=== PATIENT | male | born 1985 | race Caucasian/White ===

== ENCOUNTER 2021-03-10 16:37 | Inpatient (IN) | payer OTHER ==
[~2021-03-10] VITALS: Ht 172.7 cm; Wt 79.4 kg
[~2021-03-10 16:37] MED LIST: ACETAMINOPHEN-1 EAC1 PO; AUGMENTIN 875875 MG PO; BUSPIRONE HCL10 MG PO; CLONIDINE0.1 PO; GEODON40 MG PO; HYDROCODONE-AP1 EAC6 PO; IBUPROFEN 800800 M1 PO; IBUPROFEN 800800 MG PO; KEFLEX500 MG PO; MULTIPLE VITAM1 EAC1 PO; NOHOMEMEDICATIONS; NORCO 5-325 TA1 EAC1 PO; NORCO 5-325 TA1 EACH PO; PERCOCET 5-3251 EACH PO; PROCTOCREAM-HC30 G1 RC; ZOLOFT50 MG PO
[2021-03-10 17:04] VITALS: BP 150/86
[2021-03-10 17:07] LABS: URINE BLOOD 3+ (Negative); URINE CLARITY CLOUDY; URINE COLOR YELLOW; URINE GLUCOSE-RANDOM NEGATIVE (Negative); URINE KETONES NEGATIVE (Negative); URINE NITRITE-REFLEX NEGATIVE (Negative); URINE PROTEIN 3+ (Negative); URINE SPECIFIC GRAVITY >= 1.030 (1.005-1.030)
[2021-03-10 17:13] LABS: ICTOTEST (BILI CONFIRMATORY) Negative (Negative); URINE BILIRUBIN 1+ (Negative); URINE LEUKOCYTES-REFLEX 2+ (Negative)
[2021-03-10 17:22] LABS: BACTERIA-REFLEX >30 Many /HPF (None Seen); URINE WBC-REFLEX >25 Many /HPF (0-5)
[2021-03-10 17:23] LABS: MUCUS 0-3 Light strn/LPF (None Seen); URINE RBC >20 Many /HPF (0-2)
[2021-03-10 17:24] LABS: CASTS None Seen /LPF (None Seen); CRYSTALS None Seen /LPF (None Seen); SQUAMOUS 0-3 Few /LPF (0-3)
[2021-03-10 17:56] LABS: ABSOLUTE BASOPHILS 0.1 thou/uL (0.0-0.2); ABSOLUTE EOSINOPHILS 0.3 thou/uL (0.0-0.7); ABSOLUTE LYMPHOCYTES 2.8 thou/uL (0.8-5.3); ABSOLUTE MONOCYTES 1.2 thou/uL (0.0-1.2); ABSOLUTE NEUTROPHILS 8.7 thou/uL (1.6-8.1); BASOPHILS 0.6 %; EOSINOPHILS 2.3 %; HEMOGLOBIN 14.8 gm/dL (14.0-18.0); LYMPHOCYTES 21.5 %; MCH 30.7 pg (26.0-34.0); MCHC 34.5 g/dL (28.0-37.0); MONOCYTES 9.2 %; MPV 7.4 fl. (7.2-11.1); NUCLEATED RBCS 0 /100WBC; PLATELET COUNT* 366 thou/uL (150-400); POLYS 66.4 %; RBC 4.84 mil/uL (4.50-6.00); RDW-CV 13.3 % (10.5-14.5); WBC 13.1 thou/uL (4.0-11.0)
[2021-03-10 18:10] LABS: CALCIUM 8.7 mg/dL (8.5-10.1); POTASSIUM 3.9 mmol/L (3.5-5.1)
[2021-03-10 18:14] LABS: ALBUMIN 3.6 g/dL (3.4-5.0); TOTAL BILIRUBIN 0.4 mg/dL (<0.1-1.0); TOTAL PROTEIN 7.1 g/dL (6.4-8.2)
[2021-03-10 21:13] VITALS: BP 137/94
[2021-03-10 21:35] VITALS: BP 156/92
--- NOTE | 2021-03-11 02:45 | NUR ---
ALERT AND ORIENTED X4 MALE PATIENT TO ROOM 111 BY CART FROM ER IN STABLE CONDITION. SOMEWHAT ANXIOUS ON ARRIVAL DEALING WITH NEWLY INSERTED 3-Way COLON CATHETER AND NEW DIAGNOSIS. VITAL SIGNS STABLE WITH TACHYCARDIA. CONTINUES TO HAVE SOME PAIN OF PENIS AND PERINEUM. ADMISSION ROUTINES IN PROGRESS. MESSAGE OUT TO PHYSICIAN REGARDING REQUEST FOR NICTOTINE PATCH, PAIN AND ANXIETY MANAGEMENT. CONTINUE TO MONITOR.
--- NOTE | 2021-03-11 04:49 | NUR ---
PATIENT HAS REMAINED ALERT AND ORIENTED X 4 THROUGHOUT THE SHIFT AND ONCE NEW ORDERS RECEIVED AND PROVIDED FOR PAIN AND ANXIETY, PATIENT HAS RESTED QUIETLY. COLON PATENT TO DEPENDENT DRAINAGE. URINE DOES CONTAIN SEDIMENT, A FEW OCCASSIONAL SMALL BLOOD CLOTS AND URINE APPEARS BLOOD TINGED OVERALL. NPO AT MIDNIGHT FOR UROLOGY CONSULT THIS AM. DUE TO DISTRESS AT ARRIVAL WITH TEARS AND ANXIETY, IT WAS ARRANGED FOR PATIENT'S SIGNIFICANT OTHER TO STAY OVERNIGHT. CONTINUE TO MONITOR.
[2021-03-11 07:45] VITALS: BP 136/68
[2021-03-11 16:24] VITALS: BP 135/77
--- NOTE | 2021-03-11 18:04 | NUR ---
PATIENT RESTING IN BED. PATIENT IS UP AD JUAN MANUEL IN ROOM AND HALLS. PATIENT HAS COLON IN PLACE, CONTINUES TO BE BLOODY. PATIENT HAS COMPLAINTS OF PAIN AND ANXIETY, TREATED ADEQUATELY WITH MEDICATION. PATIENT HAS IV FLUIDS INFUSING ORDERED. PATIENT HAS GOOD APPETITE. PATIENT DENIES ANY NEEDS AT THIS TIME. CALL LIGHT WITHIN REACH.
[2021-03-11 19:30] VITALS: BP 147/94
--- NOTE | 2021-03-12 04:58 | NUR ---
PATIENT HAS REMAINED ALERT AND ORIENTED X 4 THROUGHOUT THE SHIFT. RESTING WELL AFTER PAIN AND ANXIETY MEDICATION PROVIDED [id number]. COLON CATHETER REMAINS PATENT TO DEPENDENT DRAINAGE WITH A FEW SMALL BLOOD CLOTS NOTED AND PINK TINGED URINE AT TIMES. HS PATIENT WAS STRAINING TO HAVE A BM. THE PRESENCE OF THE CATHETER ALSO MAKES HIM FEEL HE HAS TO URINATE. HE STATES SOME PUS TYPE FLUID CAME OUT AROUND THE CATHETER DURING THIS ACTIVITY. STAFF DID NOT OBSERVE. DID SEE SMALL AMOUNT PINK DRAINAGE LATER AFTER SHOWER. PATIENT IS VERY FIXATED ON THE CATHETER WHEN HE IS AWAKE AND VERY FREQUENTLY TOUCHING OR MANIPULATING IT. EDUCATION PROVIDED FOR COLON HYGIENE 2-3 X/DAY NEEDED BUT DISCOURAGED HIS CONSTANT ATTENDENCE. HAND HYGIENE ALSO ENCOURAGED. CONTINUE TO MONITOR.
[2021-03-12 05:05] LABS: ABSOLUTE BASOPHILS 0.1 thou/uL (0.0-0.2); ABSOLUTE EOSINOPHILS 0.3 thou/uL (0.0-0.7); ABSOLUTE LYMPHOCYTES 3.4 thou/uL (0.8-5.3); ABSOLUTE MONOCYTES 1.4 thou/uL (0.0-1.2); ABSOLUTE NEUTROPHILS 8.6 thou/uL (1.6-8.1); BASOPHILS 0.6 %; EOSINOPHILS 2.4 %; HEMATOCRIT 41.5 % (42.0-52.0); LYMPHOCYTES 24.9 %; MCHC 33.8 g/dL (28.0-37.0); MCV 88.9 fL (80.0-100.0); MPV 7.9 fl. (7.2-11.1); NUCLEATED RBCS 0 /100WBC; PLATELET COUNT* 326 thou/uL (150-400); POLYS 62.1 %; RBC 4.67 mil/uL (4.50-6.00); RDW-CV 13.4 % (10.5-14.5); WBC 13.8 thou/uL (4.0-11.0)
[2021-03-12 05:27] LABS: CALCIUM 8.8 mg/dL (8.5-10.1); CREATININE 0.8 mg/dL (0.6-1.3); POTASSIUM 3.7 mmol/L (3.5-5.1)
[2021-03-12 08:33] VITALS: BP 123/70
[2021-03-12] MEDS ORDERED: LORAZEPAM 0.50.5 MG PO (10:56)
[2021-03-12] MEDS ORDERED: CEFDINIR300 MG PO (10:56)
[2021-03-12] MEDS ORDERED: Nicoderm 21MG/24HR P TRANSDERM (10:56)
[2021-03-12 12:17] VITALS: BP 123/70
--- NOTE | 2021-03-12 13:47 | NUR ---
PT DISCHARGED ABOUT 1340 WITH NURSING STAFF AND SIGNIFICANT OTHER. IV OUT. PERSONAL BELONINGS SENT WITH PT. COLON IN PLACE, LEG BAG PUT ON BEFORE DC AND LARGER BAG GIVEN TO PT TO REPLACE LEG BAG AT NIGHT. PAIN CONTROLLED. PT STABLE UPON DISCHARGE.
== END 2021-03-12 13:51 | disposition home or self-care (01) | DRG 690 ==
LOC: M.ERS 16:37 → M.TBA-ER 19:38 → M.ORTHSURG 21:26
PROVIDERS: Nurse Practitioner Family; ADMIT Internal Medicine; ATTEND Internal Medicine
DX: N39.0 Urinary tract infection, site not specified (principal); N17.9 Acute kidney failure, unspecified; N13.8 Other obstructive and reflux uropathy; N40.1 Benign prostatic hyperplasia with lower urinary tract symptoms; Z20.822 Contact with and (suspected) exposure to COVID-19; F17.210 Nicotine dependence, cigarettes, uncomplicated; R33.8 Other retention of urine; N32.9 Bladder disorder, unspecified; E86.0 Dehydration; K57.90 Diverticulosis of intestine, part unspecified, without perforation or abscess without bleeding; R31.0 Gross hematuria